=== PATIENT | male | born 1980 | race Caucasian/White ===

== ENCOUNTER 2019-10-30 07:42 | Emergency (ER) | payer MEDICARE, OTHER, SELFPAY ==
[2019-10-30 07:51] VITALS: BP 127/76; PULSE 76; RESP 18; TEMP 36.7; O2SAT 95; BMI 38.4
--- NOTE | 2019-10-30 07:57 | XR_ITS ---
PROCEDURE: XR FOOT LT MIN 3V CLINICAL INDICATION: pain, f/b check. COMPARISON: No exams were available for comparison FINDINGS: No fracture or dislocation. No lytic or blastic change. There is normal mineralization. The joint spaces are well-preserved. No significant degenerative/arthritic changes. No erosive changes evident. Other findings:No radio opaque foreign body apparent IMPRESSION: No acute findings. Dictated by: Buddy Desouza MD 10/30/2019 09:05 Buddy Desouza MD in [place] 10/30/2019 09:05
--- NOTE | 2019-10-30 08:01 | [facility].EDGENADL ---
ED Disposition Clinical Impression: Visit for wound check, Foot pain, left Disposition: Home, Self-Care Condition on Discharge: Good Instructions: DI for Chronic Pain -- Adult Referrals: Lazara Terrell DPM [Staff Physician] - 3 days - Critical Care Critical Care Time: No Attestation: On 10/30/19, the high probability of a clinically significant, sudden or life threatening deterioration of the following system(s) required my full and direct attention, intervention and personal management. The time I documented below is in addition to time spent performing reported procedures but includes the following listed in this critical care notation. Medical Decision Making - Medical Records Medical records reviewed: Yes: I reviewed the patient's medical records. - Rodrigo Inquiry Pt receiving controlled substance: No Vital Signs: 10/30/19 07:51 Temperature 98.0 F Temperature Source Oral Pulse Rate [Radial] 76 Respiratory Rate 18 Blood Pressure [Right Arm] 127/76 Blood Pressure Mean [Right Arm] 93 Blood Pressure Source [Right Arm] Automatic Cuff Blood Pressure Position [Right Arm] Sitting 02 Sat by Pulse Oximetry 95 Oxygen Delivery Method Room Air Orders (Tests/Meds): ORDERS Category Date Time Status XR foot LT min 3V Stat Exams 10/30/19 07:57 Taken Medical Decision Narrative: Patient with wound of 3 months duration on the bottom of his foot. There seems to be some scar tissue buildup underneath the wound. There are no signs of infection. X-ray shows no obvious foreign body per my read. He has not had any fevers or other signs of injury. No fracture on x-ray. Recommended follow-up with podiatry to consider options for wound healing and pain control. Michelle SALAS General Adult HPI - General Chief complaint: PAIN Stated complaint: left foot Time Seen by Provider: 10/30/19 08:01 Mode of Arrival: Ambulatory Source of Information: Patient Limitations: No Limitations Description of Symptoms (Recalled from ER Triage Doc. by RN): Stepped on something approximately 3 months ago. Left foot. Not healing, painful. - History of Present Illness HPI narrative: This is a 39-year-old male who presents to the emergency department for pain on the bottom of his left foot. 3 months ago he stepped on a piece of metal, dug it out of his foot and has had pain since then. No fevers, drainage, signs of infection from the wound, but he is developed a firm knot on the plantar surface of his foot where he originally had the wound and this is uncomfortable. Weightbearing and walking makes the pain worse, rest makes it better. - Related Data Home Medications Medication Instructions Recorded Confirmed Omeprazole [Omeprazole 10mg Cap] 10 mg PO DAILY 07/26/17 07/26/17 Simvastatin 5 mg PO DAILY 07/26/17 07/26/17 Previous Rx's Medication Instructions Recorded Hydrocortisone [Proctosol-Hc] 1 applicatio TP BID #1 [email or web address] 07/26/17 Allergies Allergy/AdvReac Type Severity Reaction Status Date / Time INGREDIENT: NO KNOWN - NO Allergy Unknown Uncoded 03/02/17 15:21 KNOWN DRUG ALLERGY [facility] History - Hepatitis A Screen Drug use history?: No High risk sexual behaviors?: No History of sexually transmitted infection?: No Currently employed?: No Childcare worker?: No Do you have indoor plumbing?: Yes Do you have electricity?: Yes Attestation statement:: This patient has been screened for Hepatitis A risk factors. I have reviewed the patient's past medical history: Yes Medical History: Reports:: Hypertension - Social History Alcohol Intake: never Occupational Status: employed Housing: house ROS Obtained: Yes All systems reviewed & no additional complaints Physical Exam - General General appearance: alert, in no apparent distress - Head Head exam: atraumatic, normocephalic - Respiratory Respiratory exam: Absent: respiratory distress - Cardiovascular Cardiovascular exam: Present: reg
--- NOTE | 2019-10-30 08:06 | PC.NURSE ---
Pt to rad
[2019-10-30 08:26] VITALS: BP 133/85; PULSE 65; RESP 17; TEMP 36.8; O2SAT 100
== END 2019-10-30 08:29 | disposition home or self-care (01) ==
PROVIDERS: Emergency Provider Emergency Medicine
DX: M79.672 Pain in left foot (principal); I10 Essential (primary) hypertension
CPT/HCPCS: 73630; 99282

== ENCOUNTER → 2020-02-20 15:25 | Outpatient (CLI) | payer MEDICARE, OTHER, SELFPAY ==
[2020-02-20 16:08] LABS: Basophils % 0.6 % (0.1-2.0); Eosinophils # 0.1 K/mm3 (0.0-0.4); Eosinophils % 2.3 % (0.1-12.0); Hematocrit 47.5 % (42.0-52.0); Hemoglobin 16.5 g/dL (14.1-18.0); Lymphocytes % 36.2 % (10-50); Mean Corpuscular HGB Conc 34.7 g/dL (31.8-35.4); Mean Corpuscular Hemoglobin 32.4 pg (27.0-31.2); Mean Corpuscular Volume 93.5 fl (80-94); Mean Platelet Volume 8.8 fl (7.4-10.4); Monocytes # 0.4 K/mm3 (0.1-1.0); Monocytes % 6.8 % (1.7-9.3); Neutrophils # 2.9 K/mm3 (1.8-7.8); Neutrophils % 54.1 % (37.0-80.0); Platelet Count 215 K/mm3 (142-424); Red Blood Count 5.08 M/mm3 (4.60-6.20); Red Cell Distribution Width 13.5 % (11.5-17.5); White Blood Count 5.4 K/mm3 (4.8-10.8)
[2020-02-20 16:14] LABS: Alanine Aminotransferase 66 U/L (12-78); Albumin Level 4.7 g/dl (3.5-5.0); Albumin/Globulin Ratio 1.5 (1.1-1.8); Alkaline Phosphatase 70 U/L (38-126); Anion Gap 11.4 mEq/L (5-15); Aspartate Amino Transferase 45 U/L (17-59); Bilirubin,Total 0.8 mg/dl (0.2-1.3); Blood Urea Nitrogen 18 mg/dl (9-20); Calcium 9.9 mg/dl (8.4-10.2); Carbon Dioxide 29 mmol/L (22.0-30.0); Chloride 105 mmol/L (98-107); Chol/HDL Ratio 5.7 (1-3.5); Cholesterol 222 mg/dl (140-200); Estimated Glomerular Filt Rate 83 ml/min (>60); GFR (African American) 101 ML/MIN (>60); Globulin 3.1 g/dL (1.3-3.2); Glucose 95 mg/dl (74-100); HDL Cholesterol 39 mg/dl (40-60); Potassium 4.4 mmoL/L (3.5-5.1); Sodium 141 mmol/L (136-145); Total Protein,Serum 7.8 g/dl (6.3-8.2); Triglycerides 107 mg/dl (30-150); VLDL Cholesterol 21 mg/dL (0-40)
[2020-02-20 16:31] LABS: 25-OH Vitamin D, Total 20.9 ng/mL (30-100)
[2020-02-20 16:32] LABS: T4 (Thyroxine) 9.1 ug/dl (5.53-11.0)
== END ==
PROVIDERS: Visit Provider Nurse Practitioner Family
DX: Z00.00 Encounter for general adult medical examination without abnormal findings (principal); F32.9 Major depressive disorder, single episode, unspecified; E55.9 Vitamin D deficiency, unspecified; I10 Essential (primary) hypertension
CPT/HCPCS: 80053; 80061; 82306; 84436; 84443; 85025